=== PATIENT | male | born 1950 | race Caucasian/White ===

== ENCOUNTER → 2016-08-04 | Day surgery (SDC) | payer BC, MEDICARE ==
[~2016-08-04] MED LIST: AMBIEN CR PO; AMBIEN10 MG PO; ARICEPT PO; ASPIRIN EC81 M1 PO; ATORVASTATIN CA20 MG PO; BACTRIM DS TABL1 TAB PO; DARVOCET-N 1001 TAB PO; DULERA 100 MCG/13 GM INH; EFFEXOR PO; EFFEXOR75 M2 PO; FISH OIL 1,0001 EAC1 PO; FLOMAX0.4 M1 PO; GLUCOPHAGE500 M1 PO; KLONOPIN PO; KLONOPIN1 MG PO; LIPITOR PO; LOVAZA PO; LOVAZA1 G PO; METOPROLOL TAR25 MG PO; MOBIC PO; MULTI VITAMIN1 EACH PO; TOPAMAX PO; UTIRA C
--- NOTE | ~2016-08-04 | OR ---
Unit #: [id number] #: [id number] Patient: DEL NGUYEN [id number] [address] [place], [place] [address] [id number] O MR#: [id number] NAME: DEL NGUYEN ROOM: Date of Procedure: 08/04/2016 Admission Date: 08/04/2016 Surgeon: Naren Medina M.D. : 1950 Attending Physician: Naren Medina M.D. Primary Care Physician: Rox Martinez A.P.R.N. OPERATIVE REPORT PRIMARY CARE PHYSICIAN Rox Martinez A.P.R.N. PREOPERATIVE DIAGNOSIS Colorectal cancer screening in an average-risk patient. PROCEDURE PERFORMED Colonoscopy up to cecum with excellent preparation and good visualization. POSTOPERATIVE DIAGNOSES Completely normal examination up to cecum. The patient did not have any polyps nor any diverticula or hemorrhoids. RECOMMENDATIONS Repeat colonoscopy in 10 years. SEDATION USED MAC. DESCRIPTION OF PROCEDURE Following detailed explanation of the potential risks and complications of a colonoscopy, namely perforation, bleeding, and complications related to sedation, the patient was brought to GI lab and laid in the left lateral decubitus position. A digital rectal examination was performed which was normal. Lubricated tip of the Olympus video colonoscope was inserted through the anus and advanced under direct vision. The scope was advanced past rectosigmoid into descending colon. No diverticula were seen in this area. The scope tip was then navigated all the way up to cecum with visualization of the ileocecal valve and the appendiceal orifice. Preparation was excellent with good visualization and photodocumentation was obtained. Last few inches of terminal ileum were also visualized after intubation of the ileocecal valve and appeared normal. Successive segments of the colonic mucosa were examined upon withdrawal and appeared unremarkable. There being no polyps, mass lesions, AVMs, or diverticula. The patient did not have any hemorrhoids at anal verge. The scope was then withdrawn and the patient returned to the recovery area. He tolerated the procedure without any postprocedure complications. Dictated by... Naren Medina M.D. Unit #: [id number] #: [id number] Patient: DEL NGUYEN CALLI/gita TD: 08/04/2016 14:12 JOB #: [id number] OPERATIVE REPORT Page 1 of 1 X Naren Medina MD PROCEDURE OPERATIVE NOTE
== END | disposition home or self-care (01) ==
LOC: COPS 09:12
DX: Z12.11 Encounter for screening for malignant neoplasm of colon (principal); E11.9 Type 2 diabetes mellitus without complications; I25.10 Atherosclerotic heart disease of native coronary artery without angina pectoris; Z95.1 Presence of aortocoronary bypass graft; J44.9 Chronic obstructive pulmonary disease, unspecified; J45.909 Unspecified asthma, uncomplicated; G30.9 Alzheimer's disease, unspecified; F02.80 Dementia in other diseases classified elsewhere, unspecified severity, without behavioral disturbance, psychotic disturbance, mood disturbance, and anxiety; G47.30 Sleep apnea, unspecified; C61 Malignant neoplasm of prostate; Z79.84 Long term (current) use of oral hypoglycemic drugs; Z79.82 Long term (current) use of aspirin
CPT/HCPCS: 82947

== ENCOUNTER → 2016-08-04 | Outpatient (CLI) | payer BC, MEDICARE | END | disposition home or self-care (01) | LOC: CLAB 09:18 | DX: C61 Malignant neoplasm of prostate (principal) | CPT/HCPCS: 82330; G0103 ==

== ENCOUNTER → 2016-12-23 | Outpatient (CLI) | payer BC, MEDICARE ==
--- NOTE | ~2016-12-23 | TH ---
Unit #: [id number] #: [id number] Patient: DEL NGUYEN [id number] [address] [address] [id number] O MR#: [id number] NAME: DEL NGUYEN : 1950 SEX: M STUDY DATE/TIME: UNIT: [facility] ROOM: STUDY DESCRIPTION: Nuclear Study Attending Physician: Guido Pichardo M.D. Referring Physician: Guido Pichardo M.D. Primary Care Physician: Rox Martinez A.P.R.N. CARDIOLOGY REPORT EXAM Nuclear Study RESULTS Result text under Combined EKG and Nuclear Study. Please see this test for results of Nuclear Study. Dictated by... Amauri Cummings/markos TD: 12/23/2016 13:26 JOB #: [id number] CARDIOLOGY REPORT Page 1 of 1 X Ted Diaz MD CARDIOLOGY REPORT
--- NOTE | ~2016-12-23 | ST ---
Unit #: [id number] #: [id number] Patient: DEL NGUYEN [id number] [address] [address] [id number] O MR#: [id number] NAME: DEL NGUYEN : 1950 SEX: M STUDY DATE/TIME: 12/23/2016 UNIT: [facility] ROOM: STUDY DESCRIPTION: Stress Test/Nuclear Study Attending Physician: Guido Pichardo M.D. Referring Physician: Guido Pichardo M.D. Primary Care Physician: Rox Martinez A.P.R.N. CARDIOLOGY REPORT EXAM Combined EKG as well as Nuclear Part of the Test DESCRIPTION Patient's baseline heart rate is 51 beats per minute. Blood pressure is 103/62. Patient's baseline EKG showing normal sinus rhythm, normal EKG. The patient received Lexiscan infusion as per protocol. At peak infusion, heart rate was 71 beats/minute, blood pressure 98/58. Patient has a sinus bradycardia, normal EKG. During Lexiscan infusion recovery, no further ST and T changes. The patient also received 11.28 mCi of Cardiolite at rest and 32.2 mCi of Cardiolite during stress. Both sets of images were compared. Patient shows fairly uniform uptake of radiotracer. No defect was noted. Patient also had gated SPECT scan which showed normal LV size and function. No wall motion abnormality detected. Ejection fraction is 63%. INTERPRETATION OF THE TEST 1. EKG part of the test negative for Lexiscan-induced ischemia. 2. Nuclear part of the test negative for myocardial ischemia. 3. Gated SPECT scan shows normal LV size and function. Dictated by... Amauri Cummings/markos TD: 12/23/2016 13:19 JOB #: [id number] Unit #: [id number] #: [id number] Patient: DEL NGUYEN CARDIOLOGY REPORT Page 1 of 1 X Ted Diaz MD CARDIOLOGY REPORT
== END | disposition home or self-care (01) ==
LOC: CNUC 08:47
DX: I25.10 Atherosclerotic heart disease of native coronary artery without angina pectoris (principal); R07.2 Precordial pain
CPT/HCPCS: 78452; 93017; A9500; J2785

== ENCOUNTER → 2017-02-05 | Outpatient (CLI) | payer BC, MEDICARE ==
--- NOTE | ~2017-02-05 | US6 ---
[facility] A Service of [facility] & [facility] RADIOLOGY TEXT RESULTS PATIENT: DEL NGUYEN LOCATION: [facility] : [birth year] UNIT #: [id number] AGE: [address]: Rox Martinez APRN SEX: M ORDER DR: [id number] [address] [address] [id number] O MR#: [id number] Acc #: [id number] NAME: DEL NGUYEN : 1950 SEX: M STUDY DATE/TIME: 02/05/2017 9:07 UNIT: [facility] ROOM: STUDY DESCRIPTION: US Abdominal Limited Attending Physician: Rox Martinez A.P.R.N. Referring Physician: Rox Martinez A.P.R.N. Ordering Physician: Rox Martinez A.P.R.N. Primary Care Physician: Rox Martinez A.P.R.N. MEDICAL IMAGING REPORT This report is preliminary unless electronic signature is present. EXAM Right upper quadrant ultrasound, 02/05/2017 HISTORY Abnormally elevated liver enzymes for 2 weeks. FINDINGS The liver demonstrates an increase in echotexture with attenuation of the ultrasound beam characteristic of fatty infiltration. No cystic or solid mass lesions were seen within the liver. The intra and extrahepatic bile ducts are not dilated. The gallbladder contains shadowing gallstones, but there is no evidence of gallbladder wall thickening or pericholecystic fluid. The common duct measures 3 mm. The pancreas is obscured by bowel gas. The right kidney is normal. IMPRESSION 1. Fatty infiltration of the liver. 2. Cholelithiasis. 3. Poor visualization of the pancreas due to overlying bowel gas. Dictated by... Sagar Damon M.D. THIS IS AN ELECTRONICALLY VERIFIED REPORT Sagar Damon M.D. at 02/06/2017 8:10 AM PAUL/flor TD: 02/05/2017 19:12 JOB #: [id number] MEDICAL IMAGING REPORT [facility] A Service of [facility] & [facility] RADIOLOGY TEXT RESULTS PATIENT: DEL NGUYEN LOCATION: [facility] #: [id number] : [birth year] UNIT #: [id number] AGE: [address]: Rox Martinez APRN SEX: M ORDER DR: Page 1 of 1
== END | disposition home or self-care (01) ==
LOC: SGUS 08:20
DX: R74.8 Abnormal levels of other serum enzymes (principal); K76.0 Fatty (change of) liver, not elsewhere classified; K80.20 Calculus of gallbladder without cholecystitis without obstruction
CPT/HCPCS: 76705